=== PATIENT | female | born 1970 | race Caucasian/White ===

== ENCOUNTER 2018-02-17 14:13 | Emergency (ER) | payer BC ==
[~2018-02-17] VITALS: Ht 162.6 cm; Wt 69.8 kg
[2018-02-17 14:16] VITALS: TEMP 36.9; Ht 162.6 cm; Wt 69.8 kg
[2018-02-17] MEDS ORDERED: SODIUM CHLORIDE 0.9% 1000ML 1,000 ML IV ONE (14:45)
--- NOTE | 2018-02-17 14:46 | EMERGENCY ROOM VISIT NOTE ---
History First contact with patient: 14:22 Chief Complaint: BACK PAIN Stated Complaint: NUMBNESS, BACK PAIN, TIGHTNESS IN CHEST History of Present Illness The patient is a 47 year old female who presents to the Emergency Room with complaints of Intermittent numbness and tingling particularly in her legs that she noticed when she woke up yesterday. She denies any weakness. Her symptoms yesterday seemed to subside when she woke up this morning. When the patient was sitting at work approximately 1 hour ago, she noticed the right side of her body feeling numb. It included her right arm, leg and the right side of her face. The symptoms have again dissipated. She denies any headache. 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 She has not taken anything for her symptoms. Of note, the patient is also concerned about a sharp, stabbing, intermittent chest pain that radiates to her back that has been going on for the last several months. She denies any shortness of breath. No fever or chills. She denies any history of cardiac disease. The patient has not seen her primary care physician for any of the symptoms. Review of Systems 10 system review performed and negative unless noted in HPI or below Past Medical/Surgical History Otherwise healthy Social History Smoking Status: Never Smoker Occupation Status: employed Current/Historical Medications Scheduled Multivit-Min W/Fe-Fa ( And Iron), 1 TAB PEG DAILY Physical Exam Vital Signs Date Time Temp Pulse Resp B/P (MAP) Pulse Ox O2 Delivery O2 Flow Rate FiO2 02/17/18 16:02 79 02/17/18 15:58 79 21 145/89 99 Room Air 02/17/18 14:16 36.9 92 20 134/77 96 Room Air Physical Exam VITALS: Vitals are noted on the nurse's note and reviewed by myself. Vital signs stable. GENERAL: 47-year-old female, in no acute distress, nondiaphoretic, well- developed well-nourished. SKIN: The skin was without rashes, erythema, edema, or bruising. HEAD: Normocephalic atraumatic. EYES: Pupils equal round and reactive to light and accommodation. Conjunctivae without injection, sclerae without icterus. Extraocular movements intact. . MOUTH: Mucous membranes moist. NECK: Supple without nuchal rigidity. No lymphadenopathy. Cervical spine is nontender. No JVD. HEART: Regular rate and rhythm without murmurs gallops or rubs. LUNGS: Clear to auscultation bilaterally without wheezes, rales or rhonchi. No accessory muscle use. ABDOMEN: Positive bowel sounds x 4.Soft, nontender, without organomegaly. No guarding or rebound tenderness. RECTAL: No external hemorrhoids noted. Good sphincter tone. Guaiac negative. MUSCULOSKELETAL: No muscle atrophy, erythema, or edema noted. Full range of motion in all extremities. No tenderness to palpation. Normal gait. Strength 5/5 throughout. NEURO: Patient was alert and oriented to person place and time. Cranial nerves grossly intact. Cerebellar function intact. Negative Romberg. Normal sensation to touch. No focal neurological deficits. Medical Decision & Procedures ER Provider Diagnostic Interpretation: CT of the head without contrast IMPRESSION: 1. No acute intracranial abnormality. Electronically signed by: Lucien Carty M.D. 02/17/2018 3:05 PM Dictated Date/Time: 02/17/2018 3:01 PM The status of this report is Signed. Draft = Not yet reviewed or approved by Radiologist. Signed = Reviewed and approved by Radiologist. <AttendingPhy></AttendingPhy> <FamilyPhy>No Doctor, Assigned</FamilyPhy> < PrimaryPhy>No Doctor, Assigned</PrimaryPhy> <UnitNumber>[id number]</UnitNumber> <VisitNumber>[id number]</VisitNumber> <PatientName>CHANTAL VERONICA</PatientName > <DateOfBirth>1970</DateOfBirth> <Location>[facility]</Location> <ServiceDate> 02/17/18</ServiceDate> <MNE>ESINDI</MNE> <OrderingPhy>Kelsea Mims PA-C</ OrderingPhy> <OrderingPhyMNE>f rep ord dr kinsey</OrderingPhyMNE> <DictatingPhyMNE> f rep dict dr kinsey</DictatingPhyMNE> <CCListMNE>f rep ct tio</CCListMNE> < AdmittingPhyMNE>f pt admit dr kinsey</AdmittingPhyMNE> <AttendingPhyMNE>f pt attend dr kinsey</AttendingPhyMNE> <ConsultingPhyMNE>f pt consult dr kinsey</ConsultingPhyMNE> <FamilyPhyMNE>f pt fam dr kinsey</FamilyPhyMNE> <OtherPhyMNE>f pt other dr kinsey</OtherPhyMNE> < PrimaryPhyMNE>f pt prim care dr kinsey</PrimaryPhyMNE> <ReferringPhyMNE>f pt referring dr kinsey</ReferringPhyMNE> Chest x-ray IMPRESSION: 1. No acute cardiopulmonary disease. Electronically signed by: Lucien Carty M.D. 02/17/2018 2:45 PM Dictated Date/Time: 02/17/2018 2:45 PM The status of this report is Signed. Draft = Not yet reviewed or approved by Radiologist. Signed = Reviewed and approved by Radiologist. Laboratory Results 02/17/18 14:40 Red Blood Count 4.00, Mean Corpuscular Volume 72.8, Mean Corpuscular Hemoglobin 22.0, Mean Corpuscular Hemoglobin Concent 30.2, Mean Platelet Volume 9.0, Neutrophils (%) (Auto) 62.0, Lymphocytes (%) (Auto) 24.4, Monocytes (%) (Auto) 10.9, Eosinophils (%) (Auto) 2.0, Basophils (%) (Auto) 0.5, Neutrophils # (Auto ) 5.37, Lymphocytes # (Auto) 2.11, Monocytes # (Auto) 0.94, Eosinophils # (Auto ) 0.17, Basophils # (Auto) 0.04 02/17/18 14:40 Test 02/17/18 14:40 02/17/18 16:00 White Blood Count 8.65 K/uL (4.8-10.8) Red Blood Count 4.00 M/uL (4.2-5.4) Hemoglobin 8.8 g/dL (12.0-16.0) Hematocrit 29.1 % (37-47) Mean Corpuscular Volume 72.8 fL (80-100) Mean Corpuscular Hemoglobin 22.0 pg (25-34) Mean Corpuscular Hemoglobin Concent 30.2 g/dl (32-36) Platelet Count 425 K/uL (130-400) Mean Platelet Volume 9.0 fL (7.4-10.4) Neutrophils (%) (Auto) 62.0 % Lymphocytes (%) (Auto) 24.4 % Monocytes (%) (Auto) 10.9 % Eosinophils (%) (Auto) 2.0 % Basophils (%) (Auto) 0.5 % Neutrophils # (Auto) 5.37 K/uL (1.4-6.5) Lymphocytes # (Auto) 2.11 K/uL (1.2-3.4) Monocytes # (Auto) 0.94 K/uL (0.11-0.59) Eosinophils # (Auto) 0.17 K/uL (0-0.5) Basophils # (Auto) 0.04 K/uL (0-0.2) RDW Standard Deviation 48.6 fL (36.4-46.3) RDW Coefficient of Variation 18.2 % (11.5-14.5) Immature Granulocyte % (Auto) 0.2 % Immature Granulocyte # (Auto) 0.02 K/uL (0.00-0.02) Ovalocytes 1+ Anion Gap 8.0 mmol/L (3-11) Est Creatinine Clear Calc Drug Dose 79.5 ml/min Estimated GFR () 96.6 Estimated GFR (Non- 83.4 BUN/Creatinine Ratio 17.2 (10-20) Calcium Level 8.0 mg/dl (8.5-10.1) Magnesium Level 2.2 mg/dl (1.8-2.4) Total Bilirubin 0.3 mg/dl (0.2-1) Aspartate Amino Transf (AST/SGOT) 15 U/L (15-37) Alanine Aminotransferase (ALT/SGPT) 20 U/L (12-78) Alkaline Phosphatase 89 U/L (45-117) Troponin I < 0.015 ng/ml (0-0.045) Total Protein 8.0 gm/dl (6.4-8.2) Albumin 3.5 gm/dl (3.4-5.0) Globulin 4.5 gm/dl (2.5-4.0) Albumin/Globulin Ratio 0.8 (0.9-2) Thyroid Stimulating Hormone (TSH) 1.490 uIu/ml (0.300-4.500) Lyme Disease IgG Antibody NEG (NEG) Lyme Disease IgM Antibody NEG (NEG) Urine Test NEG (NEG) Medications Administered Medications (Trade) Dose Ordered Sig/Mirella Route Start Time Stop Time Status Last Admin Dose Admin Sodium Chloride 1,000 ml @ 999 mls/hr Q1H1M ONCE IV 02/17/18 14:45 02/17/18 15:45 DC 02/17/18 14:52 999 MLS/HR ECG Per My Interpretation Indication: chest pain Rate (beats per minute): 82 Rhythm: normal sinus Comparison ECG Date: no prior available ED Course Patient was seen and examined Vital signs including blood pressure were reviewed medications list was verified with patient Labs were obtained, and a saline lock was established The patient was hydrated with 1 L of normal saline. Upon reevaluation, the patient was resting comfortably. We discussed her results. She voiced understanding, was comfortable being discharged home. The case was also discussed with my supervising physician who is in agreement with my plan. I reviewed discharge instructions the patient. They voiced understanding and had no further questions. Medical Decision Differential diagnosis: Atypical migraine, intracranial abnormality, multiple sclerosis, neuropathy, vitamin deficiency, anemia, anxiety, cardiac arrhythmia, musculoskeletal chest pain, cardiac ischemia/infarction, arrhythmia, pneumothorax, pneumonia among others were entertained This patient is a 47-year-old female presents to the emergency department complaining of intermittent paresthesias in her legs that started yesterday in addition to right-sided numbness that occurred today. On exam, she does not have any neurologic deficits. Her labs reveal microcytic anemia with a hemoglobin of 8.8. The patient admits to not being to a doctor for quite some time. She has never been told that she was anemic before. I performed a guaiac , which was negative. The patient does have her menses right now. She does typically have fairly heavy menses. This could be the source of her anemia in addition to vitamin deficiency. I believe this is contributing to her symptoms. I do not have a high suspicion of intracranial abnormality. A CT of the head was performed and negative. An EKG shows normal sinus rhythm with no signs of ischemia or infarction. Her chest x-ray is negative. I believe the patient is stable to be discharged home with very close follow-up. She is in agreement. She also agrees to return to the ED with any new or concerning symptoms. This chart was completed in part utilizing [employer] Voice Recognition software. Attempts were made to minimize the grammatical errors, random word insertions, pronoun errors and incomplete sentences. Any formal questions or concerns about the content, text or information contained within the body of this dictation should be directly addressed to the provider for clarification. Medication Reconcilliation Current Medication List: was personally reviewed by me Blood Pressure Screening Patient's blood pressure: Elevated blood pressure Blood pressure disposition: Did not require urgent referral Impression Primary Impression: Anemia Departure Information Dispostion Home / Self-Care Condition FAIR Prescriptions Multivit-Min W/Fe-Fa ( AND IRON) 1 Tab Tab 1 TAB PEG DAILY for 3 Days, #3 TAB Prov: Kelsea Mims PA-C 02/17/18 Referrals Lucien Katz M.D. Patient Instructions My [facility] Additional Instructions You have been evaluated in the emergency department for numbness and tingling. Your blood counts are low, in particular your hemoglobin is 8.8. Please start taking a multivitamin daily. It is very important to have your blood counts rechecked within the next 3-5 days. Please call your primary care physician on Tuesday morning for a follow- up appointment. Please do not hesitate to return to the emergency department with any new, worsening or concerning symptoms; especially, lightheadedness, dizziness, chest pain or shortness of breath. It was a pleasure participating in your care today
--- NOTE | 2018-02-17 14:47 | DIAGNOSTIC IMAGING REPORT ---
CHEST ONE VIEW PORTABLE CLINICAL HISTORY: 47 years-old Female presenting with intermittent CP. TECHNIQUE: Portable upright AP view of the chest was obtained. COMPARISON: None. FINDINGS: Cardiomediastinal silhouette normal. Lungs and pleural spaces clear. Osseous structures normal. Upper abdomen normal. IMPRESSION: 1. No acute cardiopulmonary disease. Electronically signed by: Lucien Carty M.D. 02/17/2018 2:45 PM Dictated Date/Time: 02/17/2018 2:45 PM
[2018-02-17 14:50] LABS: BASO % 0.5 %; BASO ABS # 0.04 K/uL (0-0.2); EOS ABS # 0.17 K/uL (0-0.5); HEMATOCRIT 29.1 % (37-47); HEMOGLOBIN 8.8 g/dL (12.0-16.0); IG# 0.02 K/uL (0.00-0.02); LYMPH % 24.4 %; LYMPH ABS # 2.11 K/uL (1.2-3.4); MEAN CELL VOLUME 72.8 fL (80-100); MEAN CORPUSCULAR HGB CONC 30.2 g/dl (32-36); MONO % 10.9 %; MONO ABS # 0.94 K/uL (0.11-0.59); NEUT ABS # 5.37 K/uL (1.4-6.5); PLATELET COUNT 425 K/uL (130-400); RED CELL DISTRIBUTION WIDTH CV 18.2 % (11.5-14.5); RED CELL DISTRIBUTION WIDTH SD 48.6 fL (36.4-46.3); WHITE BLOOD COUNT 8.65 K/uL (4.8-10.8)
--- NOTE | 2018-02-17 15:07 | DIAGNOSTIC IMAGING REPORT ---
HEAD WITHOUT CONTRAST (CT) CLINICAL HISTORY: 47 years-old Female presenting with numbness and tingling in lower extremities. TECHNIQUE: Multidetector CT imaging of the head was performed without the use of intravenous contrast. IV contrast: None. A dose lowering technique was used consistent with the principles of ALARA (as low as reasonably achievable). COMPARISON: None. CT DOSE (mGy.cm): The estimated cumulative dose is 537.48 mGy.cm. FINDINGS: Construction Mgr topogram: Unremarkable. Ventricles and sulci normal in size. Brain parenchyma normal in appearance with preserved mackey-white differentiation. No mass effect or midline shift. No hemorrhage or acute territorial infarct. No extra-axial fluid collection. Paranasal sinuses and mastoid air cells clear. Calvarium intact. IMPRESSION: 1. No acute intracranial abnormality. Electronically signed by: Lucien Carty M.D. 02/17/2018 3:05 PM Dictated Date/Time: 02/17/2018 3:01 PM
[2018-02-17 15:17] LABS: ALBUMIN 3.5 gm/dl (3.4-5.0); ALKALINE PHOSPHATASE 89 U/L (45-117); ALT/SGPT 20 U/L (12-78); AST/SGOT 15 U/L (15-37); BLOOD UREA NITROGEN 14 mg/dl (7-18); CARBON DIOXIDE 25 mmol/L (21-32); CREATININE 0.83 mg/dl (0.60-1.20); GLUCOSE 96 mg/dl (70-99); POTASSIUM 3.8 mmol/L (3.5-5.1); SODIUM 138 mmol/L (136-145)
[2018-02-17 15:58] VITALS: BP 145/89; O2SAT 99
[2018-02-17] MEDS ORDERED: PRENTAB89 PEG (16:00)
[2018-02-17 16:02] VITALS: PULSE 79
== END 2018-02-17 16:13 | disposition home or self-care (01) ==
LOC: C.EDB 14:15 → C.EDA 16:13
DX: D64.9 Anemia, unspecified (principal)

== ENCOUNTER 2024-05-12 11:07 | Inpatient (IN) ==
[2024-05-12 11:41] LABS: Basophils # (auto) 0.02 K/uL (0.00-0.20); Basophils % (auto) 0.3 %; Eosinophils # (auto) 0.07 K/uL (0.00-0.50); Hematocrit (blood only) 41.5 % (37.0-47.0); Hemoglobin 13.3 g/dl (12.0-16.0); Immature Granulocytes # (auto) 0.02 K/uL (0.01-0.20); Immature Granulocytes % (auto) 0.3 %; Lymphocytes # (auto) 1.75 K/uL (1.20-3.40); Lymphocytes % (auto) 25.4 %; Mean Corpuscular Hemoglobin 28.9 pg (25.0-34.0); Mean Corpuscular Volume 90.2 fL (80.0-100.0); Mean Platelet Volume 10.4 fL (9.4-12.4); Monocytes # (auto) 0.98 K/uL (0.11-0.59); Monocytes % (auto) 14.2 %; Neutrophils # (auto) 4.06 K/uL (1.40-6.50); Neutrophils % (auto) 58.8 %; Platelet Count 270 K/uL (130-400); RDW Coefficient of Variation 11.6 % (11.5-14.5); RDW Standard Deviation 37.9 fL (36.4-46.3)
[2024-05-12] MEDS: PROPRANOLOL HCL 1 MG/ML 1 ML VIAL IV STA ×2 (11:59→12:36)
[2024-05-12 12:00] LABS: Alanine Aminotransferase 66 U/L (7-52); Albumin Level 3.9 gm/dl (3.4-5.0); Alkaline Phosphatase 70 U/L (34-104); Anion Gap 8 (3-11); Aspartate Aminotransferase 44 U/L (13-39); BUN Creatinine Ratio 25.9 (10-20); Bilirubin Direct 0.1 mg/dl (0-0.2); Bilirubin,Total 0.6 mg/dl (0.2-1.0); Blood Urea Nitrogen 14 mg/dl (6-23); Calcium 9.6 mg/dl (8.6-10.3); Carbon Dioxide 27 mmol/L (21-32); Chloride 106 mmol/L (98-107); Creatinine Clr Calc Pharmacy 113.9 ml/min; Glucose 90 mg/dl (70-99(Fasting)); Lipase 19 U/L (11-82); Potassium 4.3 mmol/L (3.5-5.1); Sodium 141 mmol/L (136-145); Total Protein 6.8 gm/dl (6.0-8.3)
--- NOTE | 2024-05-12 12:07 | XRay Report ---
XR chest 1V portable HISTORY: 54 years-old Female hyperthyroidism COMPARISON: 02/17/2018 TECHNIQUE: AP view of the chest FINDINGS: Cardiomediastinal and hilar silhouettes are unchanged. No pneumothorax or pleural effusion. Lungs yaw ear clear. Benign-appearing lesion of the left proximal humerus suggestive of an chondroma. IMPRESSION: No acute process. ACT 112: Negative or not required by law. The above report was generated using voice recognition software. It may contain grammatical, syntax o r spelling errors. Electronically signed by: Christopher Mendoza M.D. 05/12/2024 12:05 PM
--- NOTE | 2024-05-12 12:15 | Emergency Department Note ---
Impression & Plan Thyrotoxicosis ED Provider Note NAME: CHANTAL VERONICA AGE: 54 SEX: F : 1970 ARRIVES VIA: Walk-In INFORMANT: Patient, ED PROVIDER(S): Sangeeta Howard MD CHIEF COMPLAINT: Hypothyroidism HPI: This is a 54-year-old female presenting for anxiety, tachycardia. Patient notes that she was seen by her PCP and had outpatient blood work. This revealed that she had signs of hyperthyroidism. She was told that they would follow-up with a specialist. However patient states that she feels very strange, very anxious, her heart is racing she has tingling arms and legs patient has her face physical swollen she feels her eyes are more protruding than usual. She notes hot sensations. ROS: See above HPI for pertinent positives & negatives. A total of 10 systems reviewed and were otherwise negative. PAST MEDICAL HISTORY: See Below PAST SURGICAL HISTORY: See Below FAMILY HISTORY: See Below SOCIAL HISTORY: See Below HOME MEDICATIONS: See Below ALLERGIES: See Below VITALS: See Below PHYSICAL EXAMINATION: General: Anxious appearing Head: Normocephalic and atraumatic Eyes: Normal inspection, extraocular muscles, + exophthalmos Ear, nose, throat: Normal external exam Neck: Normal range of motion Respiratory: lungs clear to auscultation bilaterally Cardiovascular: Tachycardic regular rate/rhythm, no murmur GI: soft, nontender, no guarding or rebound Extremities: nontender, moves all extremities Neuro: The patient awake and alert, appropriately conversive, no focal deficits, symmetric faces Skin: Warm, dry, and intact MEDICAL DECISION MAKING: This is a 54-year-old female presented for anxiety and tachycardia. Patient on outpatient blood work does reveal signs of hypothyroidism with a undetectable TSH and a T4 of over 4. Will repeat this here in addition to calcium, basic blood work, LFTs. Will get chest x-ray and EKG. patient significantly hypertensive as well to over 190. -ECG independently interpreted by me with sinus tachycardia 117, occasional PVC, normal axis, normal IL, normal QRS, normal QTc, no ST segment elevations consistent with STEMI criteria -Clinical patient's current history, concern for thyrotoxicosis/significant hypothyroidism/thyroid storm -Will start emergent propranolol IV, will milligram to start with intent to get heart rate controlled below 100 -Shortly after that this was given, patient did not have a postictal improvement, will redose this. -Will continue with every 2 hour propranolol IV -Patient notes some improvement heart rate now 105 down from 125-135. Blood pressure also downtrending from 190 down to 140s -Will start methimazole at this time for thyroid levels -Despite significant delay, TSH is again undetectable with a free T4 that is continued to be elevated at 4.46, rising from 2 days ago (level was 4.03) -Other labs are reassuring and do not show signs of significant dehydration. -Chest Xray independently interpreted by me showing no pneumothorax, focal opacity, or pleural effusions. -I did a bedside echocardiogram that revealed a normal EF, no significant pleural effusion. Otherwise limited views. -Care discussed with hospitalist service for admission at this time Differential diagnosis: Hypothyroidism, thyrotoxicosis, thyroid storm ER treatment provided: See below Independent History obtained from: Daughter Diagnostics interpreted by me: ECG: See above Cardiac Monitoring: An order was placed for continuous cardiac monitoring. The monitor shows a rate of 135 with sinus tachycardia rhythm. Laboratory studies: As stated above and show below. Imaging studies: See below. Critical Care Note: I have personally spent 65 minutes of critical care time in the direct management of this patient. This includes bedside care, interpretation of diagnostic studies, and testing, discussion with consultants, patient, and family members, and other required patient management activities. This 65 minutes is in excess of all separately billable procedures. Past Med/Surg History Problem List (Updated 05/12/24 @ 18:51 by Sangeeta Howard MD) Thyrotoxicosis (Acute) Hyperthyroidism Anxiety Iron deficiency Cystocele (Chronic) Nasal septal deviation Recurrent sinusitis Chronic rhinitis Urinary incontinence, mixed (Chronic) GERD without esophagitis Recurrent UTI (Chronic) Migraine Anemia (Acute) hx Medical History Perimenopausal vasomotor symptoms Colitis Surgical History S/P eye surgery Family History Grandmother (Paternal) Myocardial infarction, Onset Age: 78 Other No family history of adverse response to anesthesia Denies family history of Ovarian cancer Prostate cancer Breast cancer Colorectal cancer Social History Smoking Status: Never smoker Second Hand Exposure: Yes (as a child); Do You Dip or Chew Tobacco: No; Hx Alcohol Use: No Hx Substance Use: No Preferred Language: Faroese Communication Ability: Effective Coding Quality Analyst Required: No Beliefs That Will Affect Care: None Current Living Situation: Family current occupational status: employed current occupation: Teacher Other Information That Helps Us Care for You: No Feels Safe at Home: Yes Safety Concerns: Feels Safe At This Time Assistive Devices: Glasses Allergies Allergies Allergy/AdvReac Type Severity Reaction Status Date / Time No Known Allergies Allergy Verified 03/08/23 14:39 Home Meds Home Medications Medication Instructions Recorded Confirmed multivitamin 1 tab PO DAILY 10/28/20 05/10/24 cholecalciferol (vitamin D3) 25 25 mcg PO DAILY 12/16/20 05/10/24 mcg (1,000 unit) tablet (Vitamin D3) ferrous sulfate 325 mg (65 mg 325 mg PO DAILY 12/16/20 05/10/24 iron) tablet cranberry fruit concentrate 250 mg 250 mg PO DAILY 09/09/22 05/10/24 chewable tablet (Azo Cranberry) Previous Rx's Medication Instructions Recorded azelastine 137 mcg (0.1 %) nasal 2 spray intranasal BID PRN nasal 03/29/23 spray congestion #90 mL amoxicillin 875 mg-potassium 1 tab PO BID 10 days #20 tabs 05/10/24 clavulanate 125 mg tablet lorazepam 0.5 mg tablet 0.5 mg PO Q8H PRN anxiety #10 tabs 05/10/24 Results & Data (ED) Vital Signs Vital Signs - 24 hr 05/12/24 11:13 05/12/24 11:23 05/12/24 11:24 Temperature 36.5 C Temperature Source Temporal Artery Scan Pulse Rate 126 H 124 H Pulse Rate [Left Apical] Pulse Rhythm Regular Pulse Strength Normal Respiratory Rate 18 Respiratory Effort / Characteristics Non-Labored Spontaneous Respiratory Depth Normal Respiratory Pattern Regular Blood Pressure 194/111 H 166/112 H Blood Pressure [Left Arm] Blood Pressure Mean 138 132 Blood Pressure Mean [Left Arm] Blood Pressure Position [Left Arm] Pulse Oximetry 97 Oxygen Delivery Method Room Air Sepsis Recent Fever Within 48 Hours No Sepsis New/Unexplained Change in Mental Status N/A Sepsis Action Taken by Nursing No Action Required 05/12/24 11:24 05/12/24 11:24 05/12/24 11:30 Temperature Temperature Source Pulse Rate Pulse Rate [Left Apical] Pulse Rhythm Pulse Strength Respiratory Rate Respiratory Effort / Characteristics Respiratory Depth Respiratory Pattern Blood Pressure 166/112 H 166/112 H 169/95 H Blood Pressure [Left Arm] Blood Pressure Mean 132 132 128 Blood Pressure Mean [Left Arm] Blood Pressure Position [Left Arm] Pulse Oximetry Oxygen Delivery Method Sepsis Recent Fever Within 48 Hours Sepsis New/Unexplained Change in Mental Status Sepsis Action Taken by Nursing 05/12/24 11:36 05/12/24 11:41 05/12/24 11:45 Temperature Temperature Source Pulse Rate 125 H Pulse Rate [Left Apical] 119 H Pulse Rhythm Pulse Strength Respiratory Rate 28 H 16 Respiratory Effort / Characteristics Non-Labored Spontaneous Respiratory Depth Normal Respiratory Pattern Blood Pressure 125/97 Blood Pressure [Left Arm] 169/95 H Blood Pressure Mean 116 Blood Pressure Mean [Left Arm] 119 Blood Pressure Position [Left Arm] Lying Pulse Oximetry 96 Oxygen Delivery Method Room Air Sepsis Recent Fever Within 48 Hours Sepsis New/Unexplained Change in Mental Status Sepsis Action Taken by Nursing 05/12/24 11:59 05/12/24 12:00 05/12/24 12:00 Temperature Temperature Source Pulse Rate 118 H 115 H Pulse Rate [Left Apical] Pulse Rhythm Pulse Strength Respiratory Rate 23 Respiratory Effort / Characteristics Respiratory Depth Respiratory Pattern Blood Pressure 125/97 157/125 H Blood Pressure [Left Arm] Blood Pressure Mean 128 Blood Pressure Mean [Left Arm] Blood Pressure Position [Left Arm] Pulse Oximetry Oxygen Delivery Method Sepsis Recent Fever Within 48 Hours Sepsis New/Unexplained Change in Mental Status Sepsis Action Taken by Nursing 05/12/24 12:06 05/12/24 12:14 05/12/24 12:16 Temperature Temperature Source Pulse Rate 112 H 114 H Pulse Rate [Left Apical] 112 H Pulse Rhythm Pulse Strength Respiratory Rate 26 H 16 Respiratory Effort / Characteristics Respiratory Depth Respiratory Pattern Blood Pressure 166/93 H Blood Pressure [Left Arm] 166/93 H Blood Pressure Mean Blood Pressure Mean [Left Arm] 117 Blood Pressure Position [Left Arm] Lying Pulse Oximetry 97 Oxygen Delivery Method Room Air Sepsis Recent Fever Within 48 Hours Sepsis New/Unexplained Change in Mental Status Sepsis Action Taken by Nursing 05/12/24 12:16 05/12/24 12:16 05/12/24 12:30 Temperature Temperature Source Pulse Rate Pulse Rate [Left Apical] Pulse Rhythm Pulse Strength Respiratory Rate Respiratory Effort / Characteristics Respiratory Depth Respiratory Pattern Blood Pressure 166/93 H 166/93 H 159/101 H Blood Pressure [Left Arm] Blood Pressure Mean 126 126 121 Blood Pressure Mean [Left Arm] Blood Pressure Position [Left Arm] Pulse Oximetry Oxygen Delivery Method Sepsis Recent Fever Within 48 Hours Sepsis New/Unexplained Change in Mental Status Sepsis Action Taken by Nursing 05/12/24 12:33 05/12/24 12:36 05/12/24 12:42 Temperature Temperature Source Pulse Rate 105 H 110 H 108 H Pulse Rate [Left Apical] Pulse Rhythm Pulse Strength Respiratory Rate 22 29 H Respiratory Effort / Characteristics Respiratory Depth Respiratory Pattern Blood Pressure 159/101 H Blood Pressure [Left Arm] Blood Pressure Mean Blood Pressure Mean [Left Arm] Blood Pressure Position [Left Arm] Pulse Oximetry Oxygen Delivery Method Sepsis Recent Fever Within 48 Hours Sepsis New/Unexplained Change in Mental Status Sepsis Action Taken by Nursing 05/12/24 12:45 05/12/24 12:45 05/12/24 12:51 Temperature Temperature Source Pulse Rate 112 H Pulse Rate [Left Apical] Pulse Rhythm Pulse Strength Respiratory Rate Respiratory Effort / Characteristics Respiratory Depth Respiratory Pattern Blood Pressure 152/100 H 152/100 H 150/68 H Blood Pressure [Left Arm] Blood Pressure Mean 112 112 Blood Pressure Mean [Left Arm] Blood Pressure Position [Left Arm] Pulse Oximetry Oxygen Delivery Method Sepsis Recent Fever Within 48 Hours Sepsis New/Unexplained Change in Mental Status Sepsis Action Taken by Nursing 05/12/24 12:57 05/12/24 13:01 05/12/24 13:01 Temperature Temperature Source Pulse Rate 110 H Pulse Rate [Left Apical] Pulse Rhythm Pulse Strength Respiratory Rate 24 Respiratory Effort / Characteristics Respiratory Depth Respiratory Pattern Blood Pressure 151/73 H 151/73 H Blood Pressure [Left Arm] Blood Pressure Mean 111 111 Blood Pressure Mean [Left Arm] Blood Pressure Position [Left Arm] Pulse Oximetry Oxygen Delivery Method Sepsis Recent Fever Within 48 Hours Sepsis New/Unexplained Change in Mental Status Sepsis Action Taken by Nursing 05/12/24 13:01 05/12/24 13:03 05/12/24 13:12 Temperature Temperature Source Pulse Rate 108 H 107 H Pulse Rate [Left Apical] Pulse Rhythm Pulse Strength Respiratory Rate 25 H 21 Respiratory Effort / Characteristics Respiratory Depth Respiratory Pattern Blood Pressure 151/73 H Blood Pressure [Left Arm] Blood Pressure Mean 111 Blood Pressure Mean [Left Arm] Blood Pressure Position [Left Arm] Pulse Oximetry Oxygen Delivery Method Sepsis Recent Fever Within 48 Hours Sepsis New/Unexplained Change in Mental Status Sepsis Action Taken by Nursing 05/12/24 13:16 05/12/24 13:16 05/12/24 13:16 Temperature Temperature Source Pulse Rate Pulse Rate [Left Apical] Pulse Rhythm Pulse Strength Respiratory Rate Respiratory Effort / Characteristics Respiratory Depth Respiratory Pattern Blood Pressure 150/68 H 150/68 H 150/68 H Blood Pressure [Left Arm] Blood Pressure Mean 92 92 92 Blood Pressure Mean [Left Arm] Blood Pressure Position [Left Arm] Pulse Oximetry Oxygen Delivery Method Sepsis Recent Fever Within 48 Hours Sepsis New/Unexplained Change in Mental Status Sepsis Action Taken by Nursing Laboratory Data 05/12/24 11:25 05/12/24 11:25 Lab Results 05/12/24 05/12/24 Range/Units 11:25 11:44 WBC 6.90 (4.8-10.8) K/ul RBC 4.60 (4.20-5.40) M/uL Hgb 13.3 (12.0-16.0) g/dl Hct 41.5 (37.0-47.0) % MCV 90.2 (80.0-100.0) fL MCH 28.9 (25.0-34.0) pg MCHC 32.0 (32.0-36.0) g/dL RDW Std Deviation 37.9 (36.4-46.3) fL RDW Coeff of Martha 11.6 (11.5-14.5) % Plt Count 270 (130-400) K/uL MPV 10.4 (9.4-12.4) fL Immature Gran % (Auto) 0.3 % Neut % (Auto) 58.8 % Lymph % (Auto) 25.4 % Mellette % (Auto) 14.2 % Eos % (Auto) 1.0 % Baso % (Auto) 0.3 % Neut # (Auto) 4.06 (1.40-6.50) K/uL Lymph # (Auto) 1.75 (1.20-3.40) K/uL Mellette # (Auto) 0.98 H (0.11-0.59) K/uL Eos # (Auto) 0.07 (0.00-0.50) K/uL Baso # (Auto) 0.02 (0.00-0.20) K/uL Immature Gran # (Auto) 0.02 (0.01-0.20) K/uL Sodium 141 (136-145) mmol/L Potassium 4.3 (3.5-5.1) mmol/L Chloride 106 (98-107) mmol/L Carbon Dioxide 27 (21-32) mmol/L Anion Gap 8 (3-11) BUN 14 (6-23) mg/dl Creatinine 0.54 L (0.6-1.2) mg/dl Est Cr Clr Drug Dosing 113.9 ml/min eGFR 108.66 BUN/Creatinine Ratio 25.9 H (10-20) Glucose 90 (70-99(Fasting)) mg/dl Calcium 9.6 (8.6-10.3) mg/dl Ionized Calcium 1.26 (1.12-1.32) mmol/L Total Bilirubin 0.6 (0.2-1.0) mg/dl Direct Bilirubin 0.1 (0-0.2) mg/dl AST 44 H (13-39) U/L ALT 66 H (7-52) U/L Alkaline Phosphatase 70 (34-104) U/L Total Protein 6.8 (6.0-8.3) gm/dl Albumin 3.9 (3.4-5.0) gm/dl Lipase 19 (11-82) U/L TSH < 0.010 L (0.300-4.500) uIu/ml Free T4 4.46 H (0.61-1.60) ng/dl Administered Medications Propranolol HCl (Propranolol Hcl 1 Mg/Ml 1 Ml Vial) 1 mg IV Q2H PRN PRN Reason: Tachycardia Stop: 06/11/24 12:59 Last Admin: 05/12/24 17:03 Dose: 1 mg Documented By: JDR Discontinued Medications Methimazole (Methimazole 5 Mg Tablet) 20 mg PO NOW STA Stop: 05/12/24 12:18 Last Admin: 05/12/24 12:38 Dose: 20 mg Documented By: MMN Propranolol HCl (Propranolol Hcl 1 Mg/Ml 1 Ml Vial) 1 mg IV NOW STA Stop: 05/12/24 11:36 Last Admin: 05/12/24 11:59 Dose: 1 mg Documented By: MMN Propranolol HCl (Propranolol Hcl 1 Mg/Ml 1 Ml Vial) 1 mg IV NOW STA Stop: 05/12/24 12:16 Last Admin: 05/12/24 12:36 Dose: 1 mg Documented By: MEDARDO Imaging Data Radiologist's Impression: Chest X-Ray 05/12/24 11:33 XR chest 1V portable HISTORY: 54 years-old Female hyperthyroidism COMPARISON: 02/17/2018 TECHNIQUE: AP view of the chest FINDINGS: Cardiomediastinal and hilar silhouettes are unchanged. No pneumothorax or pleural effusion. Lungs appear clear. Benign-appearing lesion of the left proximal humerus suggestive of an chondroma. IMPRESSION: No acute process. ACT 112: Negative or not required by law. The above report was generated using voice recognition software. It may contain grammatical, syntax or spelling errors. Electronically signed by: Christopher Mendoza M.D. 05/12/2024 12:05 PM Discharge Plan Visit Data Chief Complaint: Tachycardia Stated Complaint: FACE SWELLING, RAPID HEART RATE, TINGLING ARMS/LEG ED Provider: Sangeeta Howard Discharge Problem: Thyrotoxicosis Patient Disposition: Admitted As Inpatient Discharge Instructions Interventions: ED Discharge Assessment Last Done: 05/12/24 14:18
[2024-05-12 12:21] LABS: Thyroid Stimulating Hormone < 0.010 uIu/ml (0.300-4.500)
[2024-05-12] MEDS: methIMAzole 5 MG TABLET PO STA (12:38)
[2024-05-12 12:56] LABS: T4 Free Thyroxine 4.46 ng/dl (0.61-1.60)
--- NOTE | 2024-05-12 13:34 | History & Physical Report ---
Date of Service May 12, 2024 Assessment & Plan (1) Hyperthyroidism: Plan: This is a 54-year-old female with past medical history of anxiety, iron deficiency, GERD who presented to the ED on 05/12/2024 with a chief complaint of palpitations. Admit to telemetry EKG in ED showing tachycardia secondary to hyperthyroidism. TSH < 0.010 T4 4.46 CBC WNL BMP WNL CXR negative Thyroid Ultrasound pending Continue Propranolol 1mg IV q2H pending stabilization of HR. Continue Methimazole 20mg PO daily. tailor dose as needed. (2) Recurrent UTI: Plan: Patient w/o symptoms for her UTI culture from 05/10 growing pansensitive E coli. Patient took AM dose of Augmentin this morning plan to continue Augmentin BID while inpatient as she is being treated for sinusitis as well. Plan Chronic conditions: Iron deficiency: ferrous sulfate Anxiety: Lorazepam prn DVT prophylaxis: Lovenox Diet: regular code status: full Disposition: admit to telemetry History of Present Illness Primary Care Provider: Margaret Freed DO This is a 54-year-old female with past medical history of anxiety, iron deficiency, GERD who presented to the ED on 05/12/2024 with a chief complaint of palpitations. Patient has been having multiple ongoing symptoms since about March but within the last 7 to 10 days they have escalated. She has been feeling that her heart is racing. She has lost weight. She feels that her hands and feet are tingling. She has been weak. She notes lower extremity edema occasionally. She states that many years ago she would have rashes on and off as well. She denies any chest pain. She does admit to feeling short of breath. She denies any abdominal pain. She denies any urinary symptoms. She states that she does follow with urology for urinary incontinence and she is also following with gynecology right now. She is set to have a D&C in the upcoming weeks. She was just seen by her PCP on the and with lab work was ordered. She was found to have an undetectable TSH and a free T4 of 4.03. Upon recheck in the ER her TSH was still undetectable and her free T4 was 4.46. She was given propranolol IV along with methimazole p.o. At time of encounter she was resting comfortably in bed. She was tachycardic and hypertensive on the monitor. Patient believes that these symptoms were related to anxiety. She is also being treated for both sinusitis and a UTI outpatient with Augmentin twice daily. She did take her dosage this morning. Allergies Allergy/AdvReac Type Severity Reaction Status Date / Time No Known Allergies Allergy Verified 03/08/23 14:39 Home Medications Medication Instructions Recorded Confirmed Type multivitamin 1 tab PO DAILY 10/28/20 05/10/24 History cholecalciferol (vitamin D3) 25 25 mcg PO DAILY 12/16/20 05/10/24 History mcg (1,000 unit) tablet (Vitamin D3) ferrous sulfate 325 mg (65 mg 325 mg PO DAILY 12/16/20 05/10/24 History iron) tablet cranberry fruit concentrate 250 mg 250 mg PO DAILY 09/09/22 05/10/24 History chewable tablet (Azo Cranberry) azelastine 137 mcg (0.1 %) nasal 2 spray intranasal BID PRN nasal 03/29/23 05/10/24 Rx spray congestion #90 mL amoxicillin 875 mg-potassium 1 tab PO BID 10 days #20 tabs 05/10/24 05/10/24 Rx clavulanate 125 mg tablet lorazepam 0.5 mg tablet 0.5 mg PO Q8H PRN anxiety #10 tabs 05/10/24 05/10/24 Rx Past Med/Surg History Problem List (Updated 05/12/24 @ 13:50 by Lucia Ordonez PA-C) Hyperthyroidism Anxiety Iron deficiency Cystocele (Chronic) Nasal septal deviation Recurrent sinusitis Chronic rhinitis Urinary incontinence, mixed (Chronic) GERD without esophagitis Recurrent UTI (Chronic) Migraine Anemia (Acute) hx Medical History Perimenopausal vasomotor symptoms Colitis Surgical History S/P eye surgery Family History Grandmother (Paternal) Myocardial infarction, Onset Age: 78 Other No family history of adverse response to anesthesia Denies family history of Ovarian cancer Prostate cancer Breast cancer Colorectal cancer Social History Smoking Status: Never smoker Second Hand Exposure: Yes (as a child); Do You Dip or Chew Tobacco: No; Hx Alcohol Use: Yes Hx Substance Use: No Preferred Language: Argentine Communication Ability: Effective Allied Health Professional Required: No Beliefs That Will Affect Care: None Current Living Situation: Family current occupational status: employed current occupation: Teacher Feels Safe at Home: Yes Physical Exam 2 Constitutional: WD/WN, vitals as above Eyes: PERRL, conjunctivae normal, anicteric sclerae Neck: trachea midline, no thyromegaly Respiratory: normal respiratory effort, lungs clear to auscultation Cardiovascular: tachycardia. no murmur. negative for LE edema Gastrointestinal (Abdomen): normal bowel sounds, soft, nontender, no hepatosplenomegaly Psychiatric: A+Ox3, euthymic affect Results & Data Results & Data Vital Signs (Past 12 Hours) Vital Signs Temp Pulse Pulse Resp BP BP Pulse Ox 05/12/24 13:16 150/68 H 05/12/24 13:16 150/68 H 05/12/24 13:16 150/68 H 05/12/24 13:12 107 H 21 05/12/24 13:03 108 H 25 H 05/12/24 13:01 151/73 H 05/12/24 13:01 151/73 H 05/12/24 13:01 151/73 H 05/12/24 12:57 110 H 24 05/12/24 12:51 112 H 150/68 H 05/12/24 12:45 152/100 H 05/12/24 12:45 152/100 H 05/12/24 12:42 108 H 29 H 05/12/24 12:36 110 H 159/101 H 05/12/24 12:33 105 H 22 05/12/24 12:30 159/101 H 05/12/24 12:16 166/93 H 05/12/24 12:16 166/93 H 05/12/24 12:16 112 H 16 166/93 H 97 05/12/24 12:14 114 H 166/93 H 05/12/24 12:06 112 H 26 H 05/12/24 12:00 157/125 H 05/12/24 12:00 115 H 23 05/12/24 11:59 118 H 125/97 05/12/24 11:45 125/97 05/12/24 11:41 119 H 16 169/95 H 96 05/12/24 11:36 125 H 28 H 05/12/24 11:30 169/95 H 05/12/24 11:24 166/112 H 05/12/24 11:24 166/112 H 05/12/24 11:24 166/112 H 05/12/24 11:23 124 H 05/12/24 11:13 36.5 C 126 H 18 194/111 H 97 O2 Del Method 05/12/24 13:16 05/12/24 13:16 05/12/24 13:16 05/12/24 13:12 05/12/24 13:03 05/12/24 13:01 05/12/24 13:01 05/12/24 13:01 05/12/24 12:57 05/12/24 12:51 05/12/24 12:45 05/12/24 12:45 05/12/24 12:42 05/12/24 12:36 05/12/24 12:33 05/12/24 12:30 05/12/24 12:16 05/12/24 12:16 05/12/24 12:16 Room Air 05/12/24 12:14 05/12/24 12:06 05/12/24 12:00 05/12/24 12:00 05/12/24 11:59 05/12/24 11:45 05/12/24 11:41 Room Air 05/12/24 11:36 05/12/24 11:30 05/12/24 11:24 05/12/24 11:24 05/12/24 11:24 05/12/24 11:23 05/12/24 11:13 Room Air Laboratory Results 05/12/24 11:25 05/12/24 11:25 PG Care Time/CCT Total # of Minutes Spent Total Time Spent with Patient: Total time spent is greater than 50% in coordination of care (as documented) at patient's floor/unit and/or counseling patient: Coding Level of Care Code 43034 INT INP/OBS CARE 2/55MIN Diagnoses Hyperthyroidism E05.90 Recurrent UTI N39.0
[2024-05-12] MEDS ORDERED: ONDANSETRON INJ 2 MG/ML 2 ML VIAL IV PRN (15:07)
[2024-05-12] MEDS ORDERED: LORazepam 0.5 MG TAB PO PRN (15:07)
--- NOTE | 2024-05-12 15:31 | Ultrasound Report ---
EXAMINATION: Ultrasound thyroid CLINICAL HISTORY: Recently diagnosed hyperthyroidism, tachycardia, hypertension PRIORS: None TECHNIQUE: Ultrasound interrogation of the thyroid was performed with grayscale and color Doppler imaging. FINDINGS: The right lobe measures 4.6 x 1.0 x 1.6 cm. The left lobe measures 4.0 x 1.3 x 1.5 cm. Isthmus measures 3.7 mm. Thyroid is heterogeneous in grayscale appearance with diffuse hyperemia, right lobe greater than left. A single thyroid nodule is noted in the lower pole with well-circumscribed borders, echogenic and measures 5.5 mm. No calcifications. IMPRESSION: Hypervascular thyroid favoring thyroiditis and compatible with stated history of hyperthyroidism. ACT 112: Positive. There are findings on this examination that require communication between the performing entity and the patient following Patient Test Result Information Act ([place] ACT 112) guidelines. Electronically signed by Carmela Keith 05-12-2024 3:31 PM
[2024-05-12] MEDS: PROPRANOLOL HCL 1 MG/ML 1 ML VIAL IV PRN (17:03)
[2024-05-12] MEDS: ENOXAPARIN INJ 40 MG/0.4 ML SYR SQ SCH (20:21)
[2024-05-12] MEDS: AMOXICILLIN/CLAVULANATE 875 MG TAB PO SCH (20:21)
[2024-05-12] MEDS: ACETAMINOPHEN 325 MG TAB PO PRN (21:26)
[2024-05-12] MEDS: SODIUM CHLORIDE 0.65% NA SOLN 45 ML (OCEAN) PRN (21:28)
[2024-05-13] MEDS: AZELASTINE HCL 0.1% NASAL 200 SPRAYS/27,400 MCG BTL NAE PRN (01:00)
[2024-05-13 04:12] VITALS: RESP 18
[2024-05-13] MEDS: CHOLECALCIFEROL 25 MCG (1000 UNITS) TAB PO SCH (07:41)
[2024-05-13] MEDS: FERROUS SULFATE 325 MG TAB PO SCH (07:42)
[2024-05-13] MEDS: methIMAzole 5 MG TABLET PO SCH (07:42)
[2024-05-13 11:40] VITALS: TEMP 97.8; O2SAT 96
--- NOTE | 2024-05-13 14:30 | Discharge Summary ---
Discharge Summary Date of Service May 13, 2024 Principal Dx & Hospital Course #1 = Principal Diagnosis (1) Hyperthyroidism: 54 years old female with past medical history of FULL CODE @ home, overweight with BMI 26.8 (height 162.6 cm; weight 70.942 kg), anxiety disorder, iron deficiency, GERD, recently diagnosed cage-sensitive E. 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 Baldo Mendez, who has scheduled patient for outpatient D & C (05/29/2024, [facility]), who presented to [facility] on 05/12/2024 with a chief complaint of palpitations. Labs in [facility] ER were noted for: TSH < 0.010 uIU/mL (05/12/2024, 11:25am). Free T4 4.465 ng/dL (05/12/2024, 11:25am). Additional testing was noted for: Thyroid U/S (05/12/2024, 2:03pm): Patient was diagnosed and admitted to the inpatient hospitalist service @ [facility] on 05/12/2024 with acute thyrotoxicosis. Patient was subsequently started on propranolol 1mg IV q2h (05/12/2024, 12:17pm) and methimazole 20mg PO daily (05/12/2024, 12:20pm). Based on patient's history, I surmise that this patient suffered from a recent (e.g., in the past week) acute viral URI, as described by the patient's report of a "stuffy nose and nasal congestion; I had to breathe with my mouth open as my nose was blocked up, and that made my throat dry, but not sore, and a little difficult swallowing, but no pain at all." In addition, patient's PCP Dr. Margaret Freed diagnosed patient empirically as suffering from acute sinusitis despite the complete absence of sinus tenderness (e.g., frontal sinus tenderness, maxillary sinus tenderness, ethmoidal/sphenoidal sinus tenderness) and the complete absence of mucopurulent nasal discharge or even gingivostomatitis, to suggest acute sinusitis. The only complaint reported by the patient was severe halitosis over the past few days. Given the kiera-temporal proximity of patient's acute viral URI to patient's report of palpitations and tachycardia over the past few days, I suspect that this patient's acute viral URI is the culprit for patient's acute thyrotoxicosis. I do not suspect that this patient's concomitant acute cage- sensitive E. coli UTI (as noted on 05/10/2024 urine culture) is the culprit for this patient's acute thyrotoxicosis as the underlying etiology for most cases of acute thyrotoxicosis are due to (1) autoimmune conditions including Graves' disease and malignancy; and (2) acute viral infections, and also because this patient was already taking augmentin 875mg-125mg PO bid to treat her acute cage- sensitive E. coli UTI (as noted on 05/10/2024 urine culture) at her home, and even so, this patient remains tachycardic with palpitations. This patient demonstrates bilateral exophthalmos and lid lag with no demonstrable/palpable goiter or cervical tenderness on palpation of the thyroid gland on my 05/12/2024, 6:12pm examination of this patient. Hence, I have opted to check anti-TSH antibody titer (05/13/2024, 9:08am), as Graves' disease is caused by the production of IgG autoantibodies directed against the thyrotropin receptor, which on binding the thyrotropin receptor, causes the autonomous production of thyroid hormone, which in this patient is elevated at 4.46 ng/dL (free T4 level, as of 05/12/2024, 11:25am; cf., normal free T4 level range, 0.61 - 1.60 ng/dL). Malignancy that precipitates an autoimmune response directed against the thyroid gland should also be considered and not dismissed, especially in this post-menopausal female for the past 2 years, who now complains of post-menopausal vaginal spotting/bleeding, which, on further inquiry to her [facility] Dr. Baldo Mendez, noted that patient's "endometrium was thickened" (as per patient's report), and which is affirmed by an endometrial stripe up to 7mm (as noted on 04/20/2024 transvaginal ultrasound, [facility]). Subsequently, Dr. Mendez performed an endometrial biopsy (04/18/2024) which revealed "metaplastic cells, so I am scheduled to undergo D & C on May 29, 2024, in Dr. Mendez's offie @ [facility]. He does not think I have endometrial cancer at this time, and I shouldn't worry about it." While this patient complains of: A. quotidian fevers, day and night, leaving her bedsheets and nightgown drenched in sweat. B. unintentional weight loss of 20 pounds in the past 2-3 weeks. C. frequent bowel movements. This patient does NOT report any early satiety, and instead, insists that her appetite remains very good and that she eats full meals. Hence, I do not suspect that this patient's complaints (A, B, C) point to an underlying, undiagnosed malignancy; I suspect, instead, that this patient's complaints are consistent with acute thyroxicosis, which in turn, is due to acute viral URI. Of final note, patient reports that she no longer takes oxybutynin to mitigate her chronic urinary incontinence as this anti-muscarinic medication caused patient to suffer from "dry mouth" as to be expected from this anti-cholinergic medication. I suspect that this oxybutynin was probably contributory to her acute cage-sensitive E. coli UTI (as noted on 05/10/2024 urine culture) as oxybutynin treats chronic urinary incontinence by causing acute urinary retention, which begets urinary stasis, which begets acute UTI. Subsequently, patient reports feeling better with less severe palpitations after having started propranolol 1mg IV q2h and methimazole 20mg PO daily on 05/12/2024. Patient concedes that she still feels palpitations and review of patient's vital signs reveals that patient's resting heart rate fluctuates between HR 132 bpm (05/13/2024, 7:43am) and HR 95 bpm (05/13/2024, 11:40am) while maintaining normal BP 121/79 (05/13/2024, 7:43am) and BP 137/86 (05/13/2024, 11:40am) and remaining afebrile at 36.6 degrees Celsius (05/13/2024, 11:40am) Subsequently, patient was started on propanolol 20mg PO tid (05/13/2024, 2:20pm) while continuing methimazole 20mg PO daily (05/12/2024, 12:20pm). Subsequently, patient reports that she continues to feel better with less severe palpitations after starting propanolol 20mg PO tid (05/13/2024, 2:20pm) while continuing methimazole 20mg PO daily (05/12/2024, 12:20pm). Subsequently, patient reports that she would like to be discharged home today, 05/13/2024, and that she will follow up with her PCP Dr. Margaret Freed within 3-5 days of hospital discharge to re-evaluate her complaints of palpitations after starting propanolol 20mg PO tid (05/13/2024, 2:20pm) while continuing methimazole 20mg PO daily (05/12/2024, 12:20pm), as well as to follow up the results of anti-TSH receptor antibody testing (05/13/2024, 9:08am) for possible Graves' disease. Patient will also follow up with her [facility] Dr. Baldo Mendez to undergo D & C on May 29, 2024, in Dr. Mendez's offie @ [facility] given the finding of "metaplastic cells" on 04/18/2024 endometrial biopsy, to complete her workup to rule out endometrial carcinoma as an alternative etiology for patient's acute thyrotoxicosis. At this time, I suspect that patient's acute viral URI is responsible for patient's acute thyrotoxicosis. I do not suspect that this patient's concomitant acute cage-sensitive E. coli UTI (as noted on 05/10/2024 urine culture) is the culprit for this patient's acute thyrotoxicosis as the underlying etiology for most cases of acute thyrotoxicosis are due to (1) autoimmune conditions including Graves' disease and malignancy; and (2) acute viral infections, and also because this patient was already taking augmentin 875mg-125mg PO bid to treat her acute cage-sensitive E. coli UTI (as noted on 05/10/2024 urine culture) at her home, and even so, this patient remains tachycardic with palpitations. Hence, I think that some other infection is driving this patient's acute thyrotoxicosis. Of final note, patient reports that she will not remain in [facility] to undergo formal Endocrinology Service evaluation for acute thyrotoxicosis, and instead, will follow up with her PCP Dr. Margaret Freed to coordinate outpatient Endocrinology Service evaluation of acute thyrotoxicosis as patient reports that she continues to feel better with less severe palpitations after starting propanolol 20mg PO tid (05/13/2024, 2:20pm) while continuing methimazole 20mg PO daily (05/12/2024, 12:20pm). Patient was subsequently discharged back to her home on 05/13/2024 as requested by the patient. (2) Recurrent UTI: Afebrile with no complaints of fevers, chills, dysuria, hematuria, frequency, urgency, flank pain, nausea, vomiting, abdominal pain, or pelvic pain while at home or while in [facility]. Hence, patient continued to receive her home-scheduled augmentin 875mg / 125mg PO bid while in [facility], and will continue this medication on hospital discharge back to home on 05/13/2024, and as prescribed by her PCP Dr. Margaret Freed. Plan Other secondary medical issues include: Chronic conditions: Iron deficiency: ferrous sulfate Anxiety: Lorazepam prn DVT prophylaxis: Lovenox Diet: regular Code status: full code; ACLS was never administered. There were no adverse events noted with this hospitalization. Condition of patient remains fair. As patient demonstrated unexpectedly rapid clinical improvement while in [facility] overnight from 05/12/2024 to 05/13/2024 am, in regards to patient's complaints of palpitations due to acute thyrotoxicosis, with patient reporting that she continues to feel better with less severe palpitations after starting propanolol 20mg PO tid (05/13/2024, 2:20pm) while continuing methimazole 20mg PO daily (05/12/2024, 12:20pm), patient was discharged back to her home on 05/13/2024 am, instead of having to stay the originally anticipated 2 midnights in [facility]. Patient was advised to follow up with her PCP Dr. Margaret Freed within 3-5 days of hospital discharge to: 1. Re-evaluate patient's complaints of palpitations after starting propanolol 20mg PO tid (05/13/2024, 2:20pm) while continuing methimazole 20mg PO daily (05/12/2024, 12:20pm). 2. Follow up the results of anti-TSH receptor antibody testing (05/13/2024, 9:08am) for possible Graves' disease. 3. Arrange for outpatient Endocrinology Service evaluation of acute thyroxicosis. Patient also reports that she will follow up with her [facility] Dr. Baldo Mendez to undergo D & C on May 29, 2024, in Dr. Mendez's offie @ [facility] given the finding of "metaplastic cells" on 04/18/2024 endometrial biopsy, to complete her workup to rule out endometrial carcinoma as an alternative etiology for patient's acute thyrotoxicosis. Discharge time, 35 minutes. Of this time period, 17 minutes were spent in coordinating patient's discharge. Admission HPI Per Admitting Provider This is a 54-year-old female with past medical history of anxiety, iron deficiency, GERD who presented to the ED on 05/12/2024 with a chief complaint of palpitations. Patient has been having multiple ongoing symptoms since about March but within the last 7 to 10 days they have escalated. She has been feeling that her heart is racing. She has lost weight. She feels that her hands and feet are tingling. She has been weak. She notes lower extremity edema occasionally. She states that many years ago she would have rashes on and off as well. She denies any chest pain. She does admit to feeling short of breath. She denies any abdominal pain. She denies any urinary symptoms. She states that she does follow with urology for urinary incontinence and she is also following with gynecology right now. She is set to have a D&C in the upcoming weeks. She was just seen by her PCP on the and with lab work was ordered. She was found to have an undetectable TSH and a free T4 of 4.03. Upon recheck in the ER her TSH was still undetectable and her free T4 was 4.46. She was given propranolol IV along with methimazole p.o. At time of encounter she was resting comfortably in bed. She was tachycardic and hypertensive on the monitor. Patient believes that these symptoms were related to anxiety. She is also being treated for both sinusitis and a UTI outpatient with Augmentin twice daily. She did take her dosage this morning. Discharge Exam General: comfortable, coherent, cooperative. Wide awake and alert. Not confused, lethargic, or obtunded. Patient speaks in complete, fluent, and articulate sentences without pause, interruption, cough, or wheeze. HEENT: normocephalic, atraumatic. EOMI, PERRL. Bilateral exophthalmos with lig lag. No nystagmus, gaze paresis, anisocoria, miosis, mydriasis, hyphema, chemosis, scleral icterus, conjunctivitis, or pterygium. No otorrorhea. No rhinorrhea. No pharyngeal discharge or exudate. Neck: suppler, non-tender to palpation; no goiter. No stridor, bruit, JVD, or HJR. Lymph: no cervical, supraclavicular, infraclavicular, axillary, epitrochlear, or inguinal adenopathy. Chest: symmetric rise and fall with respiration. Non-tender to palpation. Lungs: clear to auscultation and percussion. No audible expiratory wheeze, egophony, pectoriloquy, increase in tactile fremitus, or flatness/dullness to percussion at the bases. Heart: RRR, S1 and S2 noted. No S3 or S4 summation gallop. No tripartite friction rub. Grade II/ early systolic murmur @ LLSB, not radiating to the carotids, the axilla, or back. Invariant in regards to the respiratory cycle. Abdomen: soft, non-tender, non-distended. No rebound, guarding, Higgins's sign, or organomegaly. Bowel sounds auscultated in all 4 quadrants. Extremities: no clubbing, cyanosis, or edema. 2+ pedal pulses bilaterally. Skin: no decubitus ulcer, exanthem, or enanthem. Neurology: alert and oriented in regards to person, place, and time. DTR+ and symmetric. 5/5 motor strength in all 4 extremities, both proximally and distally. No tremors, tics, or myoclonus. Urology: no suazo catheter. No urethral discharge. Discharge Plan Discharge Items Patient Disposition: Home - Self-Care Reason For Visit: TACHYCARDIA Discharge Diagnosis: Acute thyroxicosis, R/O Graves' disease. Condition on Discharge: Fair Activity: Resume your previous activity Non-emergency contact: Primary Care Provider Call non-emergency contact if: you have any medication questions Follow-up/Referrals: Margaret Freed, [Primary Care Provider] - 05/22/24 10:20 am Diet: Heart Healthy Addtl Attending Provider Instructions: See your [facility] Dr. Baldo Mendez on 05/29/2024 for D & C to treat metaplastic cells noted in your endometrium (as per 04/18/2024 endometrial biopsy). Pending Studies at Discharge: Yes Studies:: anti-TSH receptor antibody test (05/13/2024, 9:08am). Stand-Alone Forms: [email or web address], Smoking Cessation Medications and DC Order Prescriptions: New propranolol 20 mg Tablet 20 mg PO TID Qty: 90 0RF methimazole 10 mg tablet 20 mg PO DAILY Qty: 60 0RF Continued multivitamin Tablet 1 tab PO DAILY amoxicillin-pot clavulanate 875-125 mg tablet 1 tab PO BID 10 Days Qty: 20 0RF ferrous sulfate 325 mg (65 mg iron) Tablet 325 mg PO DAILY cholecalciferol (vitamin D3) [Vitamin D3] 25 mcg (1,000 unit) Tablet 25 mcg PO DAILY Discontinued Azo Cranberry 250 mg tablet,chewable 250 mg PO DAILY Discharge Orders: Discharge Order (Routine); Ordered 05/13/24 Ordered By: Hollis Ellis/Other Patient Handouts: Thyroid-Stimulating Hormone, Free T4, Free and Bound T4, Treating Thyroid Problems Admission Data Admit Date/Time: 05/12/24 13:32 Attending Provider: Hollis Hendrix Admit Provider: Hollis Hendrix Primary Care Provider: Margaret Freed Other Providers: Hollis Hendrix Hospital Stay Data Consultations 05/12/24 13:34 ED Decision to Admit Stat Diagnostic Imagining Performed 05/12/24 14:03 US thyroid Stat Pending Results Patient Have Any Pending Studies at Discharge: Yes Discharge Instructions Given to Patient (Per Discharging Provider) See your [facility] Dr. Baldo Mendez on 05/29/2024 for D & C to treat metaplastic cells noted in your endometrium (as per 04/18/2024 endometrial biopsy). Total Time Total Time Spent Total Time Spent (In Minutes): Discharge time, 35 minutes. Of this time period, 17 minutes were spent in coordinating patient's discharge. Coding Level of Care Code 60109 INP/OBS DISCH >30 MIN Diagnoses Hyperthyroidism E05.90 Recurrent UTI N39.0
[2024-05-13 14:40] VITALS: BP 131/76; PULSE 117
[2024-05-13] MEDS: PROPRANOLOL HCL 20 MG TAB PO SCH (14:47)
--- NOTE | 2024-05-14 19:03 | Electrocardiogram Report ---
Test Reason : Blood Pressure : */* mmHG Vent. Rate : 117 BPM Atrial Rate : 117 BPM P-R Int : 166 ms QRS Dur : 76 ms QT Int : 308 ms P-R-T Axes : 70 42 62 degrees QTcB Int : 429 ms Sinus tachycardia with Premature supraventricular complexes Otherwise normal ECG When compared with ECG of 17-Feb-2018 14:44, Premature supraventricular complexes are now Present Vent. rate has increased by 40 bpm Confirmed by Hamlet Askew ([id number]) on 05/14/2024 7:03:11 PM Referred By: REFERRED SELF Confirmed By: Hamlet Askew
== END 2024-05-13 16:29 | disposition home or self-care (01) | DRG 644 ==
LOC: ED 11:07 → 2N 13:32